=== PATIENT | male | born 1995 | race Asian ===

== ENCOUNTER 2016-07-18 21:46 | Inpatient (IN) | payer OTHER ==
[~2016-07-18] VITALS: Ht 182.9 cm; Wt 62.6 kg
[2016-07-18 22:12] LABS: HEMATOCRIT 42.9 % (42.0-52.0); HEMOGLOBIN 14.9 g/dl (13.5-18.0); MEAN CELL VOLUME 89 fl (80.0-100.0); MEAN CORPUSCULAR HEMOGLOBIN 31 pg (27.0-31.0); MEAN CORPUSCULAR HGB CONC 35 g/dl (33.0-37.0); MEAN PLATELET VOLUME 9.2 fl (7.4-10.4); PLATELET COUNT 173 K/mm3 (130-400); REDCELL DISTRIBUTION WIDTH-CV 11.8 % (11.5-14.5); WHITE BLOOD COUNT 6.7 K/mm3 (4.8-10.8)
[2016-07-18 22:16] LABS: ADD PATHOLOGY DIFF REVIEW NO
[2016-07-18 22:28] LABS: ADJUSTED CALCIUM 8.8 mg/dL (8.4-10.2); ALBUMIN 4.5 gm/dL (3.5-5.0); BILIRUBIN,TOTAL 2.8 mg/dL (0.0-1.0); C-REACTIVE PROTEIN 2.7 mg/dL (0.0-0.9); CALCIUM 9.2 mg/dL (8.4-10.2); CREATININE, serum 1.05 mg/dL (0.66-1.25); MAGNESIUM 1.9 mg/dL (1.6-2.3)
[2016-07-18 22:33] LABS: INFLUENZA B NEGATIVE
[2016-07-18 22:42] LABS: PROLACTIN 36.4 ng/mL (3.7-17.9)
[2016-07-18 23:17] LABS: BAND 19 % (0-10); EOSINOPHIL 1 % (0-4); NEUTROPHILS 46 % (42.0-75.2); TOTAL CELLS COUNTED 100
[2016-07-19] VITALS (412 sets, daily range): BP systolic 116–127; BP diastolic 56–83; PULSE 91–107; TEMP 97–99.5; O2SAT 58–100
[2016-07-19 00:06] LABS: PH 5 (5-8); SQUAMOUS EPITHELIAL None Seen /hpf; URINE APPEARANCE Hazy; URINE BACTERIA Rare /hpf; URINE BILIRUBIN Negative (NEGATIVE); URINE BLOOD 1+ (NEGATIVE); URINE COLOR Yellow; URINE GLUCOSE Negative (NEGATIVE); URINE KETONE 2+ (NEGATIVE); URINE UROBILINOGEN Negative (NEGATIVE)
[2016-07-19 00:38] LABS: URINE WBC 0-2 /hpf
[2016-07-19 02:16] LABS: CEREBROSPINAL TUBE #4
[2016-07-19 02:17] LABS: CEREBROSPINAL TUBE #1; CSF APPEARANCE CLEAR; CSF COLOR COLORLESS
[2016-07-19 06:14] LABS: HEMATOCRIT 40.7 % (42.0-52.0); MEAN CELL VOLUME 90 fl (80.0-100.0); MEAN CORPUSCULAR HEMOGLOBIN 31 pg (27.0-31.0); MEAN CORPUSCULAR HGB CONC 34 g/dl (33.0-37.0); MEAN PLATELET VOLUME 9.4 fl (7.4-10.4); PLATELET COUNT 166 K/mm3 (130-400); RED BLOOD COUNT 4.54 M/mm3 (4.20-5.60); REDCELL DISTRIBUTION WIDTH-CV 11.8 % (11.5-14.5); WHITE BLOOD COUNT 5.9 K/mm3 (4.8-10.8)
[2016-07-19 06:23] LABS: ADD PATHOLOGY DIFF REVIEW NO
[2016-07-19 06:28] LABS: CALCIUM 8.6 mg/dL (8.4-10.2); CREATININE, serum 0.78 mg/dL (0.66-1.25); POTASSIUM 3.9 mmol/L (3.4-5.0)
[2016-07-19 06:56] LABS: THYROID STIMULATING HORMONE 0.682 uIU/mL (0.465-4.680)
[2016-07-19 08:09] LABS: BAND 17 % (0-10); BASOPHIL 1 % (0-2); NEUTROPHILS 45 % (42.0-75.2); TOTAL CELLS COUNTED 100
[2016-07-19] MEDS ORDERED: TAMIFLU 75MG75 MG PO (12:23)
== END 2016-07-19 13:19 | disposition home or self-care (01) | DRG 153 ==
LOC: COL.ER 21:46 → ICU 07-19 01:06
PROVIDERS: Emergency Medicine; Internal Medicine
PROC: 009U3ZX Drainage of Spinal Canal, Percutaneous Approach, Diagnostic (ICD-10-PCS; principal; 2016-07-18)
DX: J11.1 Influenza due to unidentified influenza virus with other respiratory manifestations (principal); R56.9 Unspecified convulsions
CPT/HCPCS: 99223-AI; A9585; J1650; J2405; J7030